=== PATIENT | male | born 2000 | race African-American/Black ===

== ENCOUNTER 2023-08-17 00:40 | Inpatient (IN) | payer OTHER, SELFPAY ==
[2023-08-17] MEDS ORDERED: Midazolam HCl 2 mg/2 ml Vial ONE (01:11)
[2023-08-17] MEDS ORDERED: PROPOFOL 20 ML ONE (01:11)
[2023-08-17] MEDS ORDERED: fentaNYL PF 100 MCG/2 ML SYRINGE ONE (01:11)
[2023-08-17] MEDS ORDERED: Lidocaine 1% PF 5 ML VIAL ONE (01:13)
[2023-08-17] MEDS ORDERED: Rocuronium Bromide 10 MG/ML (10ML VIAL) ONE (01:13)
[2023-08-17] MEDS ORDERED: Dexamethasone 20 MG/5 ML VIAL ONE (01:13)
[2023-08-17] MEDS ORDERED: Ondansetron PF 4 MG/2 ML Vial ONE (01:13)
[2023-08-17 01:55] LABS: #Basophils Less than 0.03 10x3/uL (0.0-0.2); %Basophils 0.2 % (0.0-1.0); %Eosinophils 2.1 % (0.0-10.0); %Lymphocytes 26.1 % (21.0-51.0); %Monocytes 9.9 % (0.0-10.0); %Neutrophils 61.5 % (42.0-75.0); Hematocrit 46.1 % (42.0-52.0); Hemoglobin 14.8 g/dL (14.0-18.0); Mean Corpuscular HGB CONC 32.1 g/dL (32.0-36.0); Mean Corpuscular Hemoglobin 30.3 pg (27.0-31.0); Mean Corpuscular Volume 94.5 fL (78.0-98.0); Mean Platelet Volume 10.6 fL (7.4-10.4); Platelet Count 286 10x3/uL (130-400); RBC Distribution Width 13.2 % (11.5-14.5); Red Blood Cell (RBC) Count 4.88 mill/uL (4.70-6.10)
[2023-08-17] MEDS ORDERED: CEFAZOLIN 2 GM VIAL ONE (01:58)
[2023-08-17] MEDS ORDERED: Vancomycin 1 GM VIAL ONE (01:59)
[2023-08-17] MEDS ORDERED: Bacitracin Zinc Ointment 30 gm TUBE ONE (01:59)
[2023-08-17] MEDS ORDERED: Bupivacaine PF 0.5% 30 ML VIAL ONE (02:00)
[2023-08-17] MEDS ORDERED: Sterile Water 20 ML ONE (02:07)
[2023-08-17 02:27] LABS: ALT (SGPT) 135 U/L (8-55); AST (SGOT) 80 U/L (5-34); Albumin 4.3 g/dL (3.5-5.0); Alkaline Phosphatase 143 U/L (40-110); Anion Gap 15 mmol/L (10-20); BUN (Urea Nitrogen) 15 mg/dL (8.9-20.6); Bilirubin, Total 0.7 mg/dL (0.2-1.2); CK (CPK) 595 U/L (30-200); Calc. Creatinine Clearance 0 mL/min (70-130); Calcium 9.3 mg/dL (7.8-10.44); Carbon Dioxide 22 mmol/L (22-29); Chloride 105 mmol/L (98-107); Estimated GFR 101; Globulin 3.2 g/dL (2.4-3.5); Glucose 81 mg/dL (70-105); Potassium 4.2 mmol/L (3.5-5.1); Protein, Total 7.5 g/dL (6.0-8.3); Sodium 138 mmol/L (136-145)
[2023-08-17] MEDS ORDERED: SUGAMMADEX SODIUM 200 MG/2 ML VIAL ONE (03:02)
[2023-08-17] MEDS ORDERED: Promethazine HCl 25 MG/ML VIAL IM PRN (03:34)
[2023-08-17] MEDS ORDERED: Acetaminophen/Codeine 30-300mg Tablet PO PRN (03:34)
[2023-08-17] MEDS ORDERED: Morphine 2 MG/ML VIAL SLOW IVP PRN (03:34)
[2023-08-17] MEDS ORDERED: Ondansetron PF 4 MG/2 ML Vial SLOW IVP PRN (03:34)
[2023-08-17] MEDS ORDERED: traMADol HCl 50 MG TAB PO PRN (03:34)
[2023-08-17] MEDS ORDERED: HYDROcodone/Acetaminophen 5/325 mg Tablet PO PRN (03:34)
[2023-08-17] MEDS ORDERED: Ketorolac Tromethamine 30 MG (1 mL) VIAL IVP PRN (03:38)
[2023-08-17] MEDS ORDERED: Communication Order-Pharmacy FS PRN (03:45)
[2023-08-17] MEDS ORDERED: Ketorolac Tromethamine 30 MG (1 mL) VIAL ONE (04:02)
[2023-08-17 05:23] VITALS: BMI 23.1
[2023-08-17] MEDS: Gentamicin 80 MG/2 ML VIAL IM SCH (06:38)
[2023-08-17] MEDS: TETANUS, DIPHTHERIA TOX,ADULT (TDVAX) 0.5 ML VIAL IM ONE (06:45)
[2023-08-17 08:13] VITALS: TEMP 97.9
[2023-08-17] MEDS ORDERED: Aspirin 81 mg Enteric Coated Tablet PO SCH (09:00)
[2023-08-17] MEDS: CEFAZOLIN 2 GM in Sodium Chloride 0.9% 100 ML IVPB SCH (10:20)
[2023-08-17] MEDS: Aspirin 81 mg Enteric Coated Tablet PO SCH (10:21)
[2023-08-17 11:55] VITALS: BP 128/68
== END 2023-08-17 14:05 | disposition home or self-care (01) | DRG 514 ==
LOC: ERS 00:40 → SDC/OP 01:48 → SJJU 04:39
PROVIDERS: ADMIT Orthopaedic Surgery Hand Surgery; ATTEND Orthopaedic Surgery Hand Surgery
PROC: 0PSV04Z Reposition Left Finger Phalanx with Internal Fixation Device, Open Approach (ICD-10-PCS; principal; 2023-08-17)
DX: S62.633B Displaced fracture of distal phalanx of left middle finger, initial encounter for open fracture (principal); W20.8XXA Other cause of strike by thrown, projected or falling object, initial encounter
CPT/HCPCS: 36415; 80053; 82550; 83605; 85025; 90714; A6223; J0665; J1100; J1580; J1885; J2250; J2405; J2704; J3370; J3490